=== PATIENT | female | born 1945 | race Caucasian/White ===

== ENCOUNTER → 2019-09-09 | Outpatient (CLI) | payer MEDICARE ==
[~2019-09-09] MED LIST: MECLIZINE 25 MG25 M1 PO; PHENERGAN 25 MG25 M1 PO; TRANDOLAPRIL; VERAPAMIL; ZOCOR; ZOLOFT
== END ==
LOC: M.RAD 09-03 12:56
DX: Z12.31 Encounter for screening mammogram for malignant neoplasm of breast (principal); Z00.00 Encounter for general adult medical examination without abnormal findings; M81.0 Age-related osteoporosis without current pathological fracture